=== PATIENT | male | born 1995 | race Caucasian/White ===

== ENCOUNTER 2018-07-19 21:58 | Observation (INO) ==
[2018-07-19] MEDS ORDERED: Ketorolac 15 MG/ML VIAL IVP ONE (23:16)
[2018-07-19] MEDS ORDERED: Piperacillin/Tazobactam 3.375 GM in 0.9 % Sodium Chloride Mini Bag 100 ML IVPB ONE (23:16)
--- NOTE | 2018-07-19 23:47 | Emergency Department Note ---
Disposition Clinical Impression: Cellulitis Qualifiers: Site of cellulitis: extremity Site of cellulitis of extremity: lower extremity Laterality: right Qualified Code(s): L03.115 - Cellulitis of right lower limb Tinea pedis Qualifiers: Laterality: right Qualified Code(s): B35.3 - Tinea pedis Disposition: Admitted As Inpatient Condition: Good Skin/Abscess/FB HPI Chief complaint: ED Skin/Abscess/Foreign Body Stated complaint: Right Foot Injury/Swelling Time Seen by Provider: 07/19/18 22:29 Source: patient Mode of arrival: private vehicle Limitations: no limitations Nursing Notes Reviewed: Yes Vital Signs Reviewed: Yes Pt Subjective Complaint: other ("Foot infection") Onset (ago): day(s) Tetanus Up to Date: no Location: R foot Severity: moderate Quality: aching, dull Consistency: constant Improves with: none Worsens with: palpation Context: other (Hx of recurrent tinea pedis with acute symptoms in right foot x 2 weeks and now pain, redness and swelling x 2 days. Also has a small lesion on 2nd toe that is sore and red. States, "Something might have bit me there.") Associated symptoms: Denies: fever, chills, rigors, itching, nausea, vomiting, malaise, arthralgias, myalgias, cough, shortness of breath, other Treatments prior to arrival: none Allergies Allergy/AdvReac Type Severity Reaction Status Date / Time No Known Allergies Allergy Verified 07/18/18 12:55 All systems ED: reviewed and negative except as stated. Review of Systems: As Per HPI Constitutional: Denies: fever, chills, weakness Gastrointestinal: Denies: abdominal pain, nausea, vomiting Musculoskeletal: Denies: joint swelling, arthralgia Neurological: Denies: weakness, numbness, paresthesias Hematological/Lymphatic: Denies: easy bleeding, easy bruising, lymphadenopathy Past Medical History - Past Medical History Attestation: Yes The following information was validated with the patient. Source: patient Medical history: Reports: no medical history Surgical history: Reports: non-contributory Psychiatric history: Reports: no psych history - Social History Smoking Status: Current some day smoker Smokeless Tobacco Status: No Alcohol use: Reports: occasionally Drug use: Reports: marijuana Physical Exam - General Limitations: no limitations General appearance: alert, in no apparent distress - Head Head exam: atraumatic, normocephalic, normal inspection - Eye Eye exam: Present: normal appearance. Absent: scleral icterus, conjunctival injection, periorbital swelling - ENT ENT exam: mucous membranes moist - Neck Neck exam: Present: normal inspection, full ROM, trachea midline. Absent: meningismus - Respiratory Respiratory exam: Present: normal lung sounds bilaterally. Absent: respiratory distress, wheezes - Cardiovascular Cardiovascular exam: Present: regular rate, normal rhythm, normal heart sounds - Extremities Exam Extremities exam: Present: full ROM, tenderness, normal capillary refill. Absent: calf tenderness - Expanded Lower Extremity Exam Hip/Pelvis exam: Present: full ROM Knee exam: Present: full ROM, knee extension intact Lower leg exam: Present: normal inspection, Achilles tendon intact. Absent: tenderness, swelling, erythema Ankle exam: Present: normal inspection, full ROM. Absent: tenderness, swelling, erythema Foot/toe exam: Present: tenderness, swelling, erythema, other (1mm in diameter circular ulceration on dorsal distal second toe with surrounding erythema and lymphangitic streaking. ). Absent: ecchymosis, deformity, crepitus, foreign body, calcaneal tenderness 1 - erythema, edema, tenderness, warm 2 - 1mm lesion 3 - erythema 4 - lymphangitic streak 5 - tinea rash in between toes 3-5 Neurovascular/Tendon exam: Present: normal capillary refill, normal fine/light touch. Absent: pulse deficit, motor deficit, sensory deficit, tendon deficit, extremity cold to touch, pallor, foot drop, significant pain with passive ROM of distal joint Gait: observed and normal - Neurological Exam Neurological exam: Present: alert, oriented X3, CN II-XII intact - Psychiatric Psychiatric exam: Present: normal affect, normal mood - Skin Skin exam: Present: warm, dry, intact, normal color Course Course Narrative: Patient ate for evaluation of pain, swelling and redness in the right foot. Started yesterday and has gotten progressively worse. He denies fever, chills, nausea, vomiting, numbness, tingling, weakness in the foot. He denies trauma to the area. He has a history of recurrent tinea pedis and has had this on the three lateral toes for the past two weeks. He also notes a small lesion on the second toe that he describes as a possible insect bite. On exam, he has cellulitis that does appear to extend from the second toe of the dorsal aspect of the foot as well as lymphangitic streaking to the ankle. He is afebrile, otherwise healthy and well-appearing with normal vitals. Labs and meds ordered. X-ray ordered as well. Case discussed with Dr. Luong. He has had [id number] time with the patient and agrees with the assessment and plan. Labs normal. X-ray read by the radiologist as no acute abnormality. Patient received tetanus prophylaxis, vancomycin and Zosyn Toradol and Clotrimazole. Pain improved. - Consultations Consultation #1: Discussed case with hospitalist. Patient accepted. Time: 01:08 Vital Signs Temperature 98.9 F 07/19/18 22:08 Pulse Rate 72 07/19/18 22:08 Respiratory Rate 16 07/19/18 22:08 Blood Pressure 150/88 07/19/18 22:08 O2 Sat by Pulse Oximetry 97 07/19/18 22:08 Temperature 98.1 F 07/20/18 02:04 Pulse Rate 61 07/20/18 02:04 Respiratory Rate 16 07/20/18 02:04 Blood Pressure 135/89 07/20/18 02:04 O2 Sat by Pulse Oximetry 98 07/20/18 02:04 Oxygen Delivery Oxygen Delivery Room Air Skin/Abscess/Foreign Body - Medical Records Medical records reviewed: Yes I reviewed the patient's medical records. - Lab Data Lab results reviewed: Yes I reviewed the patient's lab results. Lab results narrative: Laboratory Last Values WBC 7.2 K/mcL (4.3-11.1) 07/19/18 23:52 RBC 4.70 M/mcL (4.19-5.50) 07/19/18 23:52 Hgb 15.0 g/dL (12.9-16.9) 07/19/18 23:52 Hct 43.0 % (37.5-50.1) 07/19/18 23:52 MCV 91.5 fL (83.0-100.0) 07/19/18 23:52 MCH 31.9 pg (28.0-33.3) 07/19/18 23:52 MCHC 34.9 g/dL (31.6-35.5) 07/19/18 23:52 RDW 11.6 % (11.5-14.5) 07/19/18 23:52 Plt Count 241 K/mcL (140-400) 07/19/18 23:52 MPV 9.4 fL (9.4-12.4) 07/19/18 23:52 Immature Gran % 0.4 % (0-4) 07/19/18 23:52 Seg Neutrophils % 61.7 % 07/19/18 23:52 Lymphocytes % 27.6 % 07/19/18 23:52 Monocytes % 8.5 % 07/19/18 23:52 Eosinophils % 1.4 % 07/19/18 23:52 Basophils % 0.4 % 07/19/18 23:52 Neutrophils # 4.4 K/mcL (1.6-8.9) 07/19/18 23:52 Lymphocytes # 2.0 K/mcL (0.6-4.6) 07/19/18 23:52 Monocytes # 0.6 K/mcL (0.0-1.3) 07/19/18 23:52 Eosinophils # 0.1 K/mcL (0.0-0.6) 07/19/18 23:52 Basophils # 0.0 K/mcL (0.0-0.2) 07/19/18 23:52 Sodium 137 mEq/L (136-145) 07/19/18 23:52 Potassium 3.8 mEq/L (3.5-5.1) 07/19/18 23:52 Chloride 102 mEq/L (98-107) 07/19/18 23:52 Carbon Dioxide 25 mEq/L (23-29) 07/19/18 23:52 BUN 14 mg/dL (6-20) 07/19/18 23:52 Creatinine 0.94 mg/dL (0.70-1.30) 07/19/18 23:52 Est GFR ( Amer) > 60 (> 60) 07/19/18 23:52 Est GFR (Non-Af Amer) > 60 (> 60) 07/19/18 23:52 BUN/Creatinine Ratio 15 (6-26) 07/19/18 23:52 Glucose 82 mg/dL (70-105) 07/19/18 23:52 Calculated Osmolality 284 (280-300) 07/19/18 23:52 Lactic Acid 0.7 mmol/L (0.5-2.2) 07/19/18 23:38 Calcium 9.8 mg/dL (8.6-10.3) 07/19/18 23:52 Result diagrams: 07/19/18 23:52 07/19/18 23:52 Lab Results 07/19/18 07/19/18 07/19/18 Range/Units 23:38 23:52 23:52 WBC 7.2 (4.3-11.1) K/mcL RBC 4.70 (4.19-5.50) M/mcL Hgb 15.0 (12.9-16.9) g/dL Hct 43.0 (37.5-50.1) % MCV 91.5 (83.0-100.0) fL MCH 31.9 (28.0-33.3) pg MCHC 34.9 (31.6-35.5) g/dL RDW 11.6 (11.5-14.5) % Plt Count 241 (140-400) K/mcL MPV 9.4 (9.4-12.4) fL Immature Gran % 0.4 (0-4) % Seg Neutrophils % 61.7 % Lymphocytes % 27.6 % Monocytes % 8.5 % Eosinophils % 1.4 % Basophils % 0.4 % Neutrophils # 4.4 (1.6-8.9) K/mcL Lymphocytes # 2.0 (0.6-4.6) K/mcL Monocytes # 0.6 (0.0-1.3) K/mcL Eosinophils # 0.1 (0.0-0.6) K/mcL Basophils # 0.0 (0.0-0.2) K/mcL Sodium 137 (136-145) mEq/L Potassium 3.8 (3.5-5.1) mEq/L Chloride 102 (98-107) mEq/L Carbon Dioxide 25 (23-29) mEq/L BUN 14 (6-20) mg/dL Creatinine 0.94 (0.70-1.30) mg/dL Est GFR ( Amer) > 60 (> 60) Est GFR (Non-Af Amer) > 60 (> 60) BUN/Creatinine Ratio 15 (6-26) Glucose 82 (70-105) mg/dL Calculated Osmolality 284 (280-300) Lactic Acid 0.7 (0.5-2.2) mmol/L Calcium 9.8 (8.6-10.3) mg/dL - Radiology Data Radiology results reviewed: Yes I reviewed the patient's radiology results. Foot X-Ray 07/20/18 00:09 IMPRESSION: Unremarkable appearance of the right foot. D/ / Franco Mann MD / Franco Mann MD Interpreting Provider: Franco Mann MD
[2018-07-19 23:58] LABS: Basophils % 0.4 %; Eosinophils # 0.1 K/mcL (0.0-0.6); Eosinophils % 1.4 %; Immature Granulocytes % 0.4 % (0-4); Lymphocytes % 27.6 %; Mean Corpuscular HGB Conc 34.9 g/dL (31.6-35.5); Mean Corpuscular Hemoglobin 31.9 pg (28.0-33.3); Mean Corpuscular Volume 91.5 fL (83.0-100.0); Mean Platelet Volume 9.4 fL (9.4-12.4); Monocytes # 0.6 K/mcL (0.0-1.3); Monocytes % 8.5 %; Neutrophils # 4.4 K/mcL (1.6-8.9); Platelet Count 241 K/mcL (140-400); Red Cell Distribution Width 11.6 % (11.5-14.5); Segmented Neutrophils % 61.7 %
[2018-07-20] MEDS ORDERED: Tdap (Boostrix) Vaccine 0.5 ML SYRINGE IM ONE (00:09)
[2018-07-20 00:20] LABS: BUN/Creatinine Ratio 15 (6-26); Blood Urea Nitrogen 14 mg/dL (6-20); Calcium 9.8 mg/dL (8.6-10.3); Carbon Dioxide 25 mEq/L (23-29); Chloride 102 mEq/L (98-107); Glucose 82 mg/dL (70-105); Osmolality,Calculated 284 (280-300); Potassium 3.8 mEq/L (3.5-5.1); Sodium 137 mEq/L (136-145); eGFR For Non-African Americans > 60 (> 60)
--- NOTE | 2018-07-20 00:48 | Emergency Department Note ---
Disposition Clinical Impression: Cellulitis Qualifiers: Site of cellulitis: extremity Site of cellulitis of extremity: lower extremity Laterality: right Qualified Code(s): L03.115 - Cellulitis of right lower limb Tinea pedis Qualifiers: Laterality: right Qualified Code(s): B35.3 - Tinea pedis Disposition: Admitted As Inpatient Condition: Good General Adult HPI - General Chief complaint: ED Skin/Abscess/Foreign Body Stated complaint: Right Foot Injury/Swelling Time Seen by Provider: 07/19/18 22:29 Source: patient Mode of arrival: private vehicle Limitations: no limitations Nursing Notes Reviewed: Yes Vital Signs Reviewed: Yes - History of Present Illness Pain Scale: 8 - Related Data Allergies Allergy/AdvReac Type Severity Reaction Status Date / Time No Known Allergies Allergy Verified 07/18/18 12:55 Constitutional: Denies: fever, chills, weakness Gastrointestinal: Denies: abdominal pain, nausea, vomiting Musculoskeletal: Denies: joint swelling, arthralgia Neurological: Denies: weakness, numbness, paresthesias Hematological/Lymphatic: Denies: easy bleeding, easy bruising, lymphadenopathy Past Medical History - Past Medical History Medical history: Reports: no medical history Surgical history: Reports: non-contributory Psychiatric history: Reports: no psych history - Social History Smoking Status: Current some day smoker Smokeless Tobacco Status: No Alcohol use: Reports: occasionally Drug use: Reports: marijuana Physical Exam - General Limitations: no limitations General appearance: alert, in no apparent distress Course Vital Signs Temperature 98.9 F 07/19/18 22:08 Pulse Rate 72 07/19/18 22:08 Respiratory Rate 16 07/19/18 22:08 Blood Pressure 150/88 07/19/18 22:08 O2 Sat by Pulse Oximetry 97 07/19/18 22:08 Temperature 98.1 F 07/20/18 02:04 Pulse Rate 61 07/20/18 02:04 Respiratory Rate 16 07/20/18 02:04 Blood Pressure 135/89 07/20/18 02:04 O2 Sat by Pulse Oximetry 98 07/20/18 02:04 Oxygen Delivery Oxygen Delivery Room Air Medical Decision Making - Lab Data Lab results reviewed: Yes I reviewed the patient's lab results. Result diagrams: 07/19/18 23:52 07/19/18 23:52 Lab Results 07/19/18 07/19/18 07/19/18 Range/Units 23:38 23:52 23:52 WBC 7.2 (4.3-11.1) K/mcL RBC 4.70 (4.19-5.50) M/mcL Hgb 15.0 (12.9-16.9) g/dL Hct 43.0 (37.5-50.1) % MCV 91.5 (83.0-100.0) fL MCH 31.9 (28.0-33.3) pg MCHC 34.9 (31.6-35.5) g/dL RDW 11.6 (11.5-14.5) % Plt Count 241 (140-400) K/mcL MPV 9.4 (9.4-12.4) fL Immature Gran % 0.4 (0-4) % Seg Neutrophils % 61.7 % Lymphocytes % 27.6 % Monocytes % 8.5 % Eosinophils % 1.4 % Basophils % 0.4 % Neutrophils # 4.4 (1.6-8.9) K/mcL Lymphocytes # 2.0 (0.6-4.6) K/mcL Monocytes # 0.6 (0.0-1.3) K/mcL Eosinophils # 0.1 (0.0-0.6) K/mcL Basophils # 0.0 (0.0-0.2) K/mcL Sodium 137 (136-145) mEq/L Potassium 3.8 (3.5-5.1) mEq/L Chloride 102 (98-107) mEq/L Carbon Dioxide 25 (23-29) mEq/L BUN 14 (6-20) mg/dL Creatinine 0.94 (0.70-1.30) mg/dL Est GFR ( Amer) > 60 (> 60) Est GFR (Non-Af Amer) > 60 (> 60) BUN/Creatinine Ratio 15 (6-26) Glucose 82 (70-105) mg/dL Calculated Osmolality 284 (280-300) Lactic Acid 0.7 (0.5-2.2) mmol/L Calcium 9.8 (8.6-10.3) mg/dL - Radiology Data Radiology results reviewed: Yes I reviewed the patient's radiology results. Foot X-Ray 07/20/18 00:09 IMPRESSION: Unremarkable appearance of the right foot. D/ / Franco Mann MD / Franco Mann MD Interpreting Provider: Franco Mann MD Critical Care Time Critical Care Time: No Attestation Statement - Attestation Attestation: I, Dwain Luong MD, personally evaluated this patient and discussed their management with the midlevel provicer, PAC/FRONT OFFICE DEVELOPER. I reviewed the midlevel provider's note and agree with the documented findings, medical decision making, and plan of care. 23-year-old male presents to the emergency department with a complaint of pain and redness and swelling in the right distal foot and toes. Patient has had a fungal infection between his toes for several weeks which seemed to be getting progressively worse. He has had cracking open of the skin and the flexion creases. There has been weeping and skin breakdown between his toes. Yesterday he developed a small sore on the top of the second toe and developed pain and swelling and redness extending up into the foot. This got significant worse today. No fever. No pain above the ankle. He also has noticed a very foul odor from the foot. On examination patient is a well-developed well-nourished well-appearing young male in no acute distress. He is alert and oriented 3. There is no cyanosis or diaphoresis. There is swelling over the distal superior aspect of the right foot with erythema and warmth to touch. Moderate tenderness to palpation. Pain with movement of the second toe. Weeping macerated lesions between the third fourth and fifth toes with open wounds in the flexor creases and a very foul odor of gangrenous tissue. Labs reviewed and unremarkable. X-ray negative. This appears to be a significant fungal skin infection with secondary bacterial infection. With the rapid onset and progression of symptoms the patient needs IV antibiotics and podiatry consultation. The hospitalist, Dr. Hodges, was consulted and accepted admission of the patient.
[2018-07-20] MEDS ORDERED: Clotrimazole 1% CRM 15 GM TUBE TP ONE (01:09)
--- NOTE | 2018-07-20 02:43 | Internal Med History&Physical ---
Date of Encounter: 07/20/18 Time of Encounter: 02:41 Internal Medicine - H&P: HPI Chief complaint: foot pain Admitted From: Home Plans for Post Hospital Care: Home History of present illness: Raad Price is a 23 year old man who has been dealing with athletes foot in between his right foot toes with openings in the crevices in between. Over the past few days he developed more breakdown and subsequently noticed redness and pain extending to the dorsum of his foot which brought him in for evaluation. No associated fever or chills. In the ER the assessment was that he had a significant cellulitis warranting IV vancomycin and PipTazo then admitted for care. Upon my assessment, he is not toxic appearing and has no systemic signs of illness. He feels well and his only complaint is the bother in between his toes. Vitals: Reviewed General: Well developed, NAD Skin: Warm and dry. Mild localized area of erythema overlying the dorsum of the right foot; macerated skin in between toes 3&4, 4&5 with foul smell emanating. HEENT: Moist mucous membranes. No conjunctivae pallor. Neck: No lymphadenopathy. No JVD. No carotid bruits. No palpable thyroid. Chest: Normal thoracic expansion. Normal breath sounds. Clear to auscultation. Heart: Normal S1 & S2; rhythmic. No rubs or murmurs. Abdomen: Non-distended, soft and non-tender to palpation. No peritoneal reaction. Extremities: No clubbing, cyanosis or edema. No calf tenderness. Normal distal pulses. Neurological: Awake, alert and oriented to person, place and time. No focal deficits. Psych: Affect appropriate. Assessment/Plan: Tinea pedis with secondary bacterial infection of skin/soft tissues: The patient received broad spectrum empiric abx. Will transition him to oral agents; clindamycin 300mg q6hrs will provide adequate Strep/Staph coverage + topical clotrimazole for the area. Foot care is advised and to keep the area dry and free from picking with his fingers. He has no systemic signs of illness and the infection is very localized. He should receive podiatry outpatient follow up appointment. Past Med Surg Social Fam HX - Past Medical History Medical history: no medical history Psychiatric history: no psych history - Past Surgical History Surgical History: non-contributory - Social History Smoking Status: Current some day smoker Smokeless Tobacco Status: No Alcohol use: occasionally Drug use: marijuana Internal Medicine - H&P: Meds Allergy/AdvReac Type Severity Reaction Status Date / Time No Known Allergies Allergy Verified 07/18/18 12:55 All Systems PM: A 10-system review of systems was performed and is negative for pertinent findings except as documented above in the HPI. Family history reviewed and found non-contributory. - Constitutional Vitals: Temp Pulse Resp BP Pulse Ox 98.1 F 61 16 135/89 98 07/20/18 02:04 07/20/18 02:04 07/20/18 02:04 07/20/18 02:04 07/20/18 02:04 Exam: . Internal Med - H&P Results - Labs CBC & Chem 7: 07/19/18 23:52 07/19/18 23:52 Labs: Short CBC 07/19/18 Range/Units 23:52 WBC 7.2 (4.3-11.1) K/mcL Hgb 15.0 (12.9-16.9) g/dL Hct 43.0 (37.5-50.1) % Plt Count 241 (140-400) K/mcL Neutrophils # 4.4 (1.6-8.9) K/mcL BMP 07/19/18 23:52 Sodium 137 Potassium 3.8 Chloride 102 Carbon Dioxide 25 BUN 14 Creatinine 0.94 Glucose 82 Calcium 9.8 - Impressions ITS Impressions Foot X-Ray 07/20/18 00:09 IMPRESSION: Unremarkable appearance of the right foot. D/ / Franco Mann MD / Franco Mann MD Interpreting Provider: Franco Mann MD - Time Spent With Patient Total time spent is greater than 50% in coordination of care (as documented) at patient's floor/unit and/or counseling patient: Greater than 35 minutes
[2018-07-20] MEDS ORDERED: *HR* Heparin 5,000 UNIT/ML VIAL SQ SCH (06:00)
[2018-07-20] MEDS ORDERED: Clotrimazole 1% CRM 15 GM TUBE TP SCH (09:00)
[2018-07-20 11:20] VITALS: BP 111/72
--- NOTE | 2018-07-20 14:24 | Discharge Summary ---
Orders not resulted at time of discharge: Pending orders 07/19/18 23:38 Culture,Blood [BC] Stat Date of Encounter: 07/20/18 Time of Encounter: 14:22 - Discharge Diagnosis (1) Cellulitis Priority: Primary Status: Acute Qualifiers: Site of cellulitis: extremity Site of cellulitis of extremity: lower extremity Laterality: right Qualified Code(s): L03.115 - Cellulitis of right lower limb (2) Tinea pedis Priority: Primary Status: Acute Qualifiers: Laterality: right Qualified Code(s): B35.3 - Tinea pedis (3) Tobacco consumption Priority: Secondary Status: Inactive Hospital course: HOSPITAL COURSE: The patient is a 23-year-old male who has developed redness and swelling of his right foot for the last few days preceding this admission. It was preceded by an few weeks lasting dealing with athletes foot; maceration in the interdigital spaces. We treated him with IV vancomycin. We noticed very good response to the treatment. He had significantly decreased the redness and swelling of his right foot at the time of discharge. He was also treated with clotrimazole cream; apply to the interdigital spaces. CONDITION AT DISCHARGE: He feels good. He does not have any significant pain in the right foot. Skin: There is mild swelling of the right foot with minimal and localized redness in the distal portion of the right foot. He continues to have maceration in interdigital spaces. The rest of his skin is normal in appearance. Respiratory: Normal breath sounds with no crackles and wheezes bilaterally. CV: Heart is regular with no gallop or murmur. GI: Abdomen is flat and soft with no palpable mass or visceromegaly. Neuro exam: There is no focal deficits. Normal speech, swallowing and gait. SEE DISCHARGE ORDERS/MEDICATIONS He will be treated with oral clindamycin for 10 days. Additionally, he will be on local clotrimazole cream. Discharge discussed with: patient, family, case management Time spent discussing smoking cessation with patient: 3 to 10 minutes - Time Spent with Patient Total time spent providing and/or coordinating discharge services: Time spent: Less than 30 minutes - Discharge Medications Prescriptions: New Clotrimazole 1% CRM [Lotrimin 1%] 1 appl TP BID #30 gm Clindamycin HCl [Cleocin HCl] 300 mg PO Q6H #40 cap Home Medications: Clotrimazole 1% CRM [Lotrimin 1%] 1 appl TP BID #30 gm 07/20/18 [Rx] Clindamycin HCl [Cleocin HCl] 300 mg PO Q6H #40 cap 07/26/18 [Rx] Allergies/Adverse Reactions: Allergy/AdvReac Type Severity Reaction Status Date / Time No Known Allergies Allergy Verified 07/18/18 12:55 Date of admission: 07/20/18 01:29 Primary care physician: PCP NONE Discharging clinician: Abimael Boyce Anticipated date of discharge: 07/20/18 - Constitutional Vitals: Temp Pulse Resp BP Pulse Ox 97.6 F 66 16 111/72 97 07/20/18 11:19 07/20/18 11:19 07/20/18 11:19 07/20/18 11:19 07/20/18 11:19 General appearance: Present: A&O X 3, no acute distress, answers questions appropriately Exam: xx - Patient Status Disposition: Home, Self-Care Condition: Good Overall status at discharge: patient is progressing back to baseline - Discharge Instructions Instructions: Clindamycin (By mouth) Follow Up With: NONE,PCP [Primary Care Provider] - Additional Instructions: Follow-up with PCP -- as scheduled before... - Diet and Activity Activity: increase activity as tolerated Diet: regular diet
== END 2018-07-20 14:58 | disposition home or self-care (01) ==
LOC: 2ANU 21:58 → EMEROOARM 21:58 → SUATTDRO 07-20 01:29 → 2ANU 07-20 01:56
PROVIDERS: ADMIT Internal Medicine; ATTEND Internal Medicine